=== PATIENT | female | born 1950 | race Caucasian/White ===

== ENCOUNTER 2016-11-10 12:59 | Emergency (ER) | payer BC, OTHER ==
--- NOTE | 2016-11-10 14:17 | DIAGNOSTIC IMAGING REPORT ---
PROCEDURE: CT HEAD WITHOUT CONTRAST INDICATION: TRAUMA/INJURY TECHNIQUE: Axial CT images were acquired through the head. Coronal and sagittal reformations were created. COMPARISON: None. FINDINGS: No intracranial hemorrhage or extraaxial fluid collections. Ventricles are normal in size, shape and position. There is no mass, mass effect or midline shift. The hill-white matter differentiation is normal. There is no edema. The calvarium is intact. The paranasal sinuses and mastoid air cells are normally aerated. There is some right frontal scalp edema. IMPRESSION: 1. No CT evidence of acute intracranial process. 2. Findings discussed with Herrera at 2:[address] scans at this facility use dose modulation, iterative reconstruction, and/or weight-based dosing when appropriate to reduce radiation dose to as low as reasonably achievable.
--- NOTE | 2016-11-10 16:24 | ED CLINICAL REPORT ---
Clinical Report - Physicians/Mid Levels [facility] [address] [place] [address] 11/10/2016 13:00 Patient: HARITHA VELEZ Time Seen: 1311; initial patient contact. Arrived- By ambulance. Historian- patient. HISTORY OF PRESENT ILLNESS Is no longer unconscious. She has recovered. Chief Complaint: SYNCOPE. This occurred today. It was abrupt in onset and has been intermittent. Event was witnessed. The patient collapsed. The patient had preceding symptoms of light-headedness. The episode lasted seconds. Currently she feels normal. (+ head injury with swelling to the forehead). Similar symptoms previously: (a few times). Recent medical care: Not recently seen/assessed. REVIEW OF SYSTEMS No chest pain, abdominal pain, vomiting, diarrhea or black stools. No bloody stools, fever, difficulty breathing or skin rash. All systems otherwise negative, except as recorded above. PAST HISTORY See nurses notes. Medications: Temazepam Oral, at bedtime as needed. Vitamins/Minerals Oral. Allergies: Codeine. Some plastics. Tape. SOCIAL HISTORY Never smoker. No alcohol use or drug use. No recent travel. Is a local resident. ADDITIONAL NOTES The nursing notes have been reviewed. PHYSICAL EXAM Vital Signs: 11/10/2016 13:13 BP: 142/75. HR: 71. RR: 14. O2 saturation: 100%. Temp: 98.0 F. Oxygen saturation normal. Appearance: Alert. No acute distress. Eyes: Pupils equal, round and reactive to light. No nystagmus. Extraocular movements normal. ENT: Normal ENT inspection. TM's normal. Moist mucous membranes. Pharynx normal. (a small hematoma noted to the for with overlying superficial abrasion. No laceration. No foreign body. Nonpulsatile.). Neck: Normal inspection. Neck supple. CVS: Normal heart rate and rhythm. Heart sounds normal. Pulses normal. Respiratory: No respiratory distress. Breath sounds normal. Abdomen: Soft and nontender. No organomegaly. Back: Normal inspection. Skin: Skin warm and dry. Normal skin color. No rash. Normal skin turgor. Extremities: Extremities exhibit normal ROM. No lower extremity edema. Neuro: Alert. Oriented X 3. Mood/affect normal. Cranial nerves normal (as tested). No cerebellar findings. No motor deficit. No sensory deficit. LABS, X-RAYS, AND EKG EKG: No acute process. No acute ischemia. Normal EKG. Normal sinus rhythm. Rate: 62. Normal P waves. Normal MAKSIM. Normal QRS complex. Normal axis. Normal ST and T waves, QT and QTc. The study has been interpreted contemporaneously. The study has been independently viewed by me. The EKG appears to be a good tracing. Interpretation time: 1311. CT Head: (PROCEDURE: CT HEAD WITHOUT CONTRAST INDICATION: TRAUMA/INJURY TECHNIQUE: Axial CT images were acquired through the head. Coronal and sagittal reformations were created. COMPARISON: None. FINDINGS: No intracranial hemorrhage or extraaxial fluid collections. Ventricles are normal in size, shape and position. There is no mass, mass effect or midline shift. The hill-white matter differentiation is normal. There is no edema. The calvarium is intact. The paranasal sinuses and mastoid air cells are normally aerated. There is some right frontal scalp edema. IMPRESSION: 1. No CT evidence of acute intracranial process.). The study was independently viewed by me and interpreted by the radiologist. The study was discussed with the radiologist (via PACS and the phone). Laboratory Tests: UA-Culture if indicated: (PAVAN: 11/10/2016 13:33) ( MsgRcvd 11/10/2016 14:39) Final results Test Result Flag Units (Reference) URINE COLOR YELLOW URINE APPEARANCE HAZY URINE GLUCOSE NEGATIVE (NEGATIVE) URINE BILIRUBIN NEGATIVE (NEGATIVE) URINE KETONE NEGATIVE (NEGATIVE) URINE SPECIFIC GRAVITY 1.010 (1.010-1.030) URINE PH 6.5 (5.0-8.0) URINE PROTEIN NEGATIVE (NEGATIVE) URINE UROBILINOGEN 0.2 EU/dL (0.2-1.0) URINE NITRITE NEGATIVE (NEGATIVE) URINE BLOOD NEGATIVE (NEGATIVE) URINE LEUK ESTERASE NEGATIVE (NEGATIVE) URINE RBC NONE SEEN rbc/hpf (0-1) URINE WBC NONE SEEN wbc/hpf (0-1) URINE EPITHELIAL CELLS NONE SEEN EPI/hpf (0-5) URINE BACTERIA NONE SEEN (NONE SEEN) URINE COMMENT CULT NOT INDICATED URINE CULTURES ARE SET-UP BASED ON THE FOLLOWING CRITERIA:POSITIVE NITRITEPOSITIVE LEUKOCYTE ESTERASEGREATER THAN 10 WHITE BLOOD CELLSMODERATE (2+) OR GREATER BACTERIA CBC w Diff: (PAVAN: 11/10/2016 13:22) ( [facility] 11/10/2016 13:36) Final results Test Result Flag Units (Reference) WHITE BLOOD COUNT 4.2 L K/uL (4.5-11.5) RED BLOOD COUNT 4.16 M/uL (4.00-5.20) HEMOGLOBIN 14.3 gm/dL (12.0-16.0) HEMATOCRIT 41.6 % (36.0-46.0) MEAN CELL VOLUME 100 fL (80-100) MEAN CORPUSCULAR HGB 34 pg (26-34) MEAN CORPUSCULAR HGB CONC 34 g/dL (31-37) RED CELL DISTRIBUTION WIDTH 13.0 % (11.6-14.8) PLATELET COUNT 178 K/uL (150-400) NEUTROPHIL % 52.6 % (50-75) LYMPH % 37.1 % (25-40) MONO % 7.8 % (3-14) EOSINOPHIL % 1.9 % (0-4) BASOPHIL % 0.6 % (0-2) PT with INR: (PAVAN: 11/10/2016 13:22) ( [facility] 11/10/2016 14:39) Final results Test Result Flag Units (Reference) INR 1.0 (0.8-1.2) Low Intensity Therapy: INR 1.5-2.0 PT range 18.5-23.1Mod.Intensity Therapy: INR 2.0-3.0 PT range 23.1-31.5High Intensity Therapy: INR 2.5-3.5 PT range 27.4-35.5High Intensity Therapy 2: INR 3.0-4.0 PT range 31.5-39.3 APTT 33 SECONDS (24-34) Troponin-I: (PAVAN: 11/10/2016 15:20) ( [facility] 11/10/2016 15:48) Final results Test Result Flag Units (Reference) TROPONIN I <0.05 L ng/mL (0.00-1.5) TROPONIN REFERENCE RANGE:<0.1 NEGATIVE0.1-1.5 INDETERMINANT>1.5 POSITIVE CMP: (PAVAN: 11/10/2016 13:22) ( MsgRcvd 11/10/2016 14:05) Final results Test Result Flag Units (Reference) GLUCOSE 98 mg/dL (70-110) BUN 16 mg/dL (7-18) CREATININE 0.8 mg/dL (0.6-1.3) Estimated GFR >60 mL/min Estimated GFR- >60 mL/min Note: Persistent reduction over 3 months in eGFR<60 mL/min/1.73 m2 defines CKD. Patients with eGFR values>=60 mL/min/1.73 m2 may also have CKD if evidence ofpersistent proteinuria. Additional information may be foundat www.kidney.org. SODIUM 142 mmol/L (136-145) POTASSIUM 4.1 mmol/L (3.5-5.1) CHLORIDE 106 mmol/L (98-107) CARBON DIOXIDE 28 mmol/L (21-32) CALCIUM 8.5 mg/dL (8.5-10.1) TOTAL PROTEIN 6.5 g/dL (6.4-8.2) ALBUMIN 3.5 g/dL (3.3-5.0) BILIRUBIN, TOTAL 0.5 mg/dL (0.0-1.0) ALKALINE PHOSPHATASE 61 U/L (46-116) AST (SGOT) 15 U/L (15-37) ALT (SGPT) 20 U/L (12-78) TROPONIN I <0.05 L ng/mL (0.00-1.5) TROPONIN REFERENCE RANGE:<0.1 NEGATIVE0.1-1.5 INDETERMINANT>1.5 POSITIVE . PROGRESS AND PROCEDURES Course of Care: the patient is a 66-year-old female presenting for evaluation of syncope and head injury. Patient without any tenderness. C-spine is cleared clinically. No other acute abnormalities noted. Patient is agreeable to the treatment plan. At this time, patient will be evaluated with the [place] syncope rule. We'll also be Evaluating for any cardiac event that could've precipitated her findings. patient's workup was markable for the findings above. Delta troponin ordered because of patient's time course. Patient's troponin is negative 2. No other signs of concerning etiologies for patient's syncopal event. Patient has been appropriate while here in the emergency department. Had a discussion with the patient in regards to her workup here in the emergency department including diagnosis, home care, follow-up, and return precautions. All questions have been answered. The patient expressed understanding of these instructions and was agreeable to them. Disposition: Discharged. Condition: good. CLINICAL IMPRESSION Syncope of unknown cause .12 lead EKG performed. (acute). 11/10/2016 16:28 BP: 138/77. HR: 81. RR: 14. O2 saturation: 100%. Temp: 98.3 F. Blood pressure normal. Oxygen saturation normal. Single contusion with soft tissue hematoma to the forehead. Probable minor closed head injury. Unknown whether a loss of consciousness occurred. INSTRUCTIONS Warnings: GENERAL WARNINGS: Return or contact your physician immediately if your condition worsens or changes unexpectedly, if not improving as expected, or if other problems arise. SPECIFICALLY, return if you develop chest pain, fluttering sensation in your chest, lightheadedness, fainting, numbness, weakness or extreme fatigue. Your Current Medications: CONTINUE TAKING THE FOLLOWING MEDICATIONS: Temazepam Oral : at bedtime, prn. Vitamins/Minerals Oral. OTC Medications: Acetaminophen (available over the counter): take according to label instructions. Motrin (available over the counter): take according to label instructions. Follow-up: Return to the emergency department as needed. Follow up with your doctor in three days. Reason for referral: recheck today's concerns. Summary of care provided to patient via paper. Screening today revealed the patient's blood pressure to be in the normal range. The patient should follow up with a primary care provider for blood pressure management. Understanding of the discharge instructions verbalized by patient and family. (Electronically signed by Narendra Silverman Dr. 11/10/2016 19:09)
--- NOTE | 2016-11-10 16:24 | ED ORDER SUMMARY ---
..... Patient: HARITHA VELEZ OrderSheet [facility] VisitID: [id number] [address] [place] [address] 66y, F Registration Date/Time: 11/10/2016 ORDER SHEET Weight: 95.2 kg (stated) Allergies: Codeine, Tape, Some plastics GENERAL ORDERS: Plant Director (Continuous) (poss syncope) (13:15 11/10/2016 Drea Magallon) (13:17 ASchmuck) CBC w Diff Urgent (13:16 11/10/2016 Drea Magallon) (Ack 13:18 Karlo) (13:28 ASchmuck) CMP Urgent (13:16 11/10/2016 Drea Magallon) (Ack 13:18 KIRSTENoerner) (13:28 ASchmuck) UA-Culture if indicated Urgent (13:16 11/10/2016 Drea Magallon) (Ack 13:18 Karlo) (13:35 ASchmuck) PT with INR Urgent (13:16 11/10/2016 Drea Magallon) (Ack 13:18 Karlo) (13:28 ASchmuck) PTT Urgent (13:16 11/10/2016 Drea Magallon) (Ack 13:18 KIRSTENoechitoner) (13:28 ASchmuck) Troponin-I Urgent (13:16 11/10/2016 Drea Magallon) (Ack 13:18 Karlo) (13:28 ASchmuck) Pulse oximeter (13:16 11/10/2016 Drea Magallon) (13:17 ASchmuck) EKG - ER Stat (13:16 11/10/2016 Drea Magallon) (13:16 PWeiler ER Tech1) (13:19 KHoerner) CT Head wo Cont Urgent (13:21 11/10/2016 Drea Magallon) (Ack 13:24 KIRSTENoejasper) (14:03 RFay) Irrigate Wounds (13:21 11/10/2016 Drea Magallon) (Cancelled: Duplicate Order13:28 ASchmuck) Dress Wounds (baci) (bandaide) (13:27 11/10/2016 Drea Magallon) (Ack 13:28 ASchmuck) (13:45 ASchmuck) Wound Irrigation (13:27 11/10/2016 Drea Magallon) (Ack 13:28 ASchmuck) (13:42 ASchmuck) Troponin-I (redraw 15:22) Urgent (14:32 11/10/2016 Drea Magallon) (Ack 14:33 KHoerner) (15:34 KHoerner) MEDICATION ORDERS: IV FLUIDS: IV Saline Lock (13:16 11/10/2016 Drea Magallon) (13:30 ASchmuck) ORDER SHEET NOTES: [Electronically signed by Abigail Rivera (18:44 11/10/2016)] [Electronically signed by Narendra Silverman Dr. (19:09 11/10/2016)] [Electronically locked/signed by Abigail Rivera (18:44 11/10/2016)]
--- NOTE | 2016-11-10 16:24 | ED NURSING NOTES ---
Clinical Report - Nurses [facility] [address] [place] [address] 11/10/2016 13:00 [id number] Triage time 13:Nov 10 2016. Acuity: LEVEL 2. Chief Complaint: SYNCOPE. 13:13 11/10/16. Alert. No acute distress. SEPSIS SCREEN: Sepsis Screen. Negative (no infection suspected/documented). WILFREDO COMA SCORE: Wilfredo Coma Scale: 15- eyes open spontaneously (4); best verbal response- oriented x 4 (5); best motor response- obeys commands (6). --13:13 Abigail Rivera 13:13 11/10/16. BP: 142/75. HR: 71. RR: 14. O2 saturation: 100%. Temp: 98.0 F. Pain level now 9/10. --13:13 Abigail Rivera. Weight: 95.2 kg stated. Height/Length: 67 inches Per Patient. BMI: 32.9. --13:11 Abigail Rivera. Medications Vitamins/Minerals Oral. --13:08 Abigail Rivera Temazepam Oral, at bedtime as needed. --13:09 Abigail Rivera. Medication/allergy information source: the patient. --13:13 Abigail Rivera. Allergies Codeine. --13:09 Abigail Rivera Tape. --13:09 Abigail Rivera Some plastics. --13:10 Abigail Rivera. History Arrived by EMS. Historian: EMS. Accompanied by family. Primary physician (Stuhlmiller. [place]). This started just prior to arrival. Onset was abrupt. She has had a headache and recent fall, trouble walking, dizziness and weakness. No impaired speech. Treatment CONVEYOR WORKER: See EMS report. EMS treatment CONVEYOR WORKER verbally communicated. Finger stick glucose performed (75 after eating). BP: 122/78. ( Pt was eating, started to feel flushed and then passed out. She hit her head. No neck/back pain.). PAST MEDICAL HX: Hypertension. No history of stroke or diabetes mellitus. No history of seizures. Immunizations: up-to-date. SOCIAL HX: Never smoker. No alcohol use or drug use. NUTRITIONAL RISK ASSESSMENT: The nutritional risk assessment revealed no deficiencies. FUNCTIONAL ASSESSMENT: Functional assessment: no impairments noted. LEARNING NEEDS ASSESSMENT: The learning needs assessment revealed no barriers. FALL RISK ASSESSMENT: Fall risk assessment completed. Risk factors identified include patient age greater than 65 years and history of fall. Fall interventions initiated. Patient placed on stretcher. Side rails up x1. Patient visible from nurses' station and identified as a fall risk by chart flagged. Call light in reach of patient. Instructed not to get up without assistance. SKIN INTEGRITY ASSESSMENT: Skin integrity risk assessment completed. No skin integrity risk identified. --13:13 Abigail Rivera Treatment CONVEYOR WORKER: Hard c-collar applied. --13:16 Abigail Rivera. PROBLEMS: Diverticulitis. Osteoarthritis of Knee. Pancreatitis. --13:11 Abigail Rivera. ADDITIONAL SURGERIES: Bowel resection. Cataract Surgery. Hernia Repair. --13:11 Abigail Rivera. Assessment The patient states feels the same. --13:13 Abigail Rivera. Interventions ID band on patient. --13:13 Abigail Rivera. PHYSICAL ASSESSMENT 13:16 11/10/16. To room via stretcher. Patient gowned. GENERAL / NEURO / PSYCH: Awake. Oriented X 4. Alert. Appears in no acute distress. [place] Coma Scale: 15- eyes open spontaneously (4); best verbal response- oriented x 4 (5); best motor response- obeys commands (6). Speech normal. Mood/affect normal. Moves all extremities equally. No motor deficit. No sensory deficit. HEENT: No facial asymmetry noted. Pupils equal, round and reactive to light. EOM intact. Pharynx within normal limits. RESPIRATORY: Respirations not labored. CVS: Capillary refill less than 2 seconds. SKIN: Skin is intact, warm and dry. --13:16 Abigail Rivera. NURSING PROGRESS NOTES 13:16 11/10/16. The plan of care for this patient has been created. undercover agent, pulse oximeter and NIBP monitor placed on patient; loader machine- Lead II and V5; monitor alarms on. Patient gowned. Head of bed elevated. Reassurance given. Two patient identifiers checked. Call light placed in reach. Side rails up x 2. Bed placed in lowest position. Brakes of bed on. Patient ready for evaluation- chart flagged and ED physician and PA notified. --13:16 Abigail Rivera 13:17 11/10/16. EKG time: (1311). EKG was ordered, performed by a tech and shown to the ED physician. --13:17 Abigail Rivera 13:24 11/10/2016 Site #1 started via IV in the left antecubital space with an 20g angiocath, with aseptic technique and good blood return; one attempt. Blood drawn: rainbow set. Labeled in the presence of the patient and sent to the lab. Saline lock flushed with 10 mL saline (Done by SAMAN Yeboah). --13:29 Abigail Rivera 13:30 11/10/16. ( Pt ambulated to bathroom, tolerated well.). --13:30 Abigail Rivera 13:39 11/10/16. Patient ID band checked for patient name and birthdate: patient confirmed. Instructions provided to collect clean catch urine and patient verbalized understanding. Clean catch urine collected with return of yellow-colored clear urine; sample sent to lab. Specimen labeled in the presence of the patient. --13:43 Abigail Rivera 13:43 11/10/16. Wound cleansed with Hibiclens. --13:43 Abigail Rivera 13:43 11/10/16. Applied clean dressing consisting of Band-Aid, following the application of antibiotic ointment (bacitracin). --13:43 Abigail Rivera 14:16 11/10/16. BP: 121/60. HR: 61. RR: 15. O2 saturation: 100%. --14:16 Abigail Rivera ( Pt up to restroom, denies being dizzy or lightheaded.). --15:03 Dayo Donohue R.N. 16:13 11/10/16. BP: 130/72. HR: 84. O2 saturation: 100%. --16:13 Abigail Rivera 16:52 11/10/2016 IV Saline Lock Drip IV Discontinued. Total amount infused: 0 mL. --16:52 Abigail Rivera 16:53 11/10/2016 Site #1 removed upon discharge. Catheter intact. Pressure dressing applied. --16:53 Abigail Rivera. DISPOSITION / DISCHARGE 16:11/10/16. Condition at departure: improved. The goals identified in the patient's plan of care were met. --16:28 Abigail Rivera 16:28 11/10/16. BP: 138/77. HR: 81. RR: 14. O2 saturation: 100% on room air. Temp: 98.3 F. Pain level now 0/10. --16:28 Abigail Rivera 16:53 11/10/16. Departure time: 16:Nov 10 2016. Condition at departure: improved. No learning barriers present. Discharge instructions provided and reviewed with the patient. Reviewed warnings (Patient verbalized awareness of warning s/sx listed in dc paperwork.). Reviewed medication(s) (Tylenol, ibuprofen). Treatments reviewed. Reviewed referral to a primary care physician for followup. Patient verbalized understanding. Written instructions provided in [place]. The patient was discharged by the physician. She was discharged home and accompanied by family. She left the Emergency Department ambulatory and via private vehicle. Family member driving. --16:53 Abigail Rivera. Locked/Released at 11/10/2016 18:44 by Abigail Rivera,
--- NOTE | 2016-11-10 16:24 | ED NURSING NOTES ---
Clinical Report - [facility] [address] [place] [place] [address] 11/10/2016 13:00 [id number] TRI[facility] Triage time 13:Nov 10 2016. Acuity: LEVEL 2. Chief Complaint: SYNCOPE. 13:13 11/10/16. Alert. No acute distress. SEPSIS SCREEN: Sepsis Screen. Negative (no infection suspected/documented). WILFREDO COMA SCORE: Wilfredo Coma Scale: 15- eyes open spontaneously (4); best verbal response- oriented x 4 (5); best motor response- obeys commands (6). --13:13 Abigail Rivera 13:13 11/10/16. BP: 142/75. HR: 71. RR: 14. O2 saturation: 100%. Temp: 98.0 F. Pain level now 9/10. --13:13 Abigail Rivera. Weight: 95.2 kg stated. Height/Length: 67 inches Per Patient. BMI: 32.9. --13:11 Abigail Rivera. Medications Vitamins/Minerals Oral. --13:08 Abigail Rivera Temazepam Oral, at bedtime as needed. --13:09 Abigail Rivera. Medication/allergy information source: the patient. --13:13 Abigail Rivera. Allergies Codeine. --13:09 Abigail Rivera Tape. --13:09 Abigail Rivera Some plastics. --13:10 Abigail Rivera. History Arrived by EMS. Historian: EMS. Accompanied by family. Primary physician ([place]. [place]). This started just prior to arrival. Onset was abrupt. She has had a headache and recent fall, trouble walking, dizziness and weakness. No impaired speech. Treatment DISTRIBUTED ENERGY SYSTEMS CONSULTANT: See EMS report. EMS treatment DISTRIBUTED ENERGY SYSTEMS CONSULTANT verbally communicated. Finger stick glucose performed (75 after eating). BP: 122/78. ( Pt was eating, started to feel flushed and then passed out. She hit her head. No neck/back pain.). PAST MEDICAL HX: Hypertension. No history of stroke or diabetes mellitus. No history of seizures. Immunizations: up-to-date. SOCIAL HX: Never smoker. No alcohol use or drug use. NUTRITIONAL RISK ASSESSMENT: The nutritional risk assessment revealed no deficiencies. FUNCTIONAL ASSESSMENT: Functional assessment: no impairments noted. LEARNING NEEDS ASSESSMENT: The learning needs assessment revealed no barriers. FALL RISK ASSESSMENT: Fall risk assessment completed. Risk factors identified include patient age greater than 65 years and history of fall. Fall interventions initiated. Patient placed on stretcher. Side rails up x1. Patient visible from nurses' station and identified as a fall risk by chart flagged. Call light in reach of patient. Instructed not to get up without assistance. SKIN INTEGRITY ASSESSMENT: Skin integrity risk assessment completed. No skin integrity risk identified. --13:13 Abigail Rivera Treatment DISTRIBUTED ENERGY SYSTEMS CONSULTANT: Hard c-collar applied. --13:16 Abigail Rivera. PROBLEMS: Diverticulitis. Osteoarthritis of Knee. Pancreatitis. --13:11 Abigail Rivera. ADDITIONAL SURGERIES: Bowel resection. Cataract Surgery. Hernia Repair. --13:11 Abigail Rivera. Assessment The patient states feels the same. --13:13 Abigail Rivera. Interventions ID band on patient. --13:13 Abigail Rivera. PHYSICAL ASSESSMENT 13:16 11/10/16. To room via stretcher. Patient gowned. GENERAL / NEURO / PSYCH: Awake. Oriented X 4. Alert. Appears in no acute distress. [place] Coma Scale: 15- eyes open spontaneously (4); best verbal response- oriented x 4 (5); best motor response- obeys commands (6). Speech normal. Mood/affect normal. Moves all extremities equally. No motor deficit. No sensory deficit. HEENT: No facial asymmetry noted. Pupils equal, round and reactive to light. EOM intact. Pharynx within normal limits. RESPIRATORY: Respirations not labored. CVS: Capillary refill less than 2 seconds. SKIN: Skin is intact, warm and dry. --13:16 Abigail Rivera. NURSING PROGRESS NOTES 13:16 11/10/16. The plan of care for this patient has been created. athletic monitor, pulse oximeter and NIBP monitor placed on patient; cardiac monitor technician- Lead II and V5; monitor alarms on. Patient gowned. Head of bed elevated. Reassurance given. Two patient identifiers checked. Call light placed in reach. Side rails up x 2. Bed placed in lowest position. Brakes of bed on. Patient ready for evaluation- chart flagged and ED physician and PA notified. --13:16 Abigail Rivera 13:17 11/10/16. EKG time: (1311). EKG was ordered, performed by a tech and shown to the ED physician. --13:17 Abigail Rivera 13:24 11/10/2016 Site #1 started via IV in the left antecubital space with an 20g angiocath, with aseptic technique and good blood return; one attempt. Blood drawn: rainbow set. Labeled in the presence of the patient and sent to the lab. Saline lock flushed with 10 mL saline (Done by SAMAN Yeboah). --13:29 Abigail Rivera 13:30 11/10/16. ( Pt ambulated to bathroom, tolerated well.). --13:30 Abigail Rivera 13:39 11/10/16. Patient ID band checked for patient name and birthdate: patient confirmed. Instructions provided to collect clean catch urine and patient verbalized understanding. Clean catch urine collected with return of yellow-colored clear urine; sample sent to lab. Specimen labeled in the presence of the patient. --13:43 Abigail Rivera 13:43 11/10/16. Wound cleansed with Hibiclens. --13:43 Abigail Rivera 13:43 11/10/16. Applied clean dressing consisting of Band-Aid, following the application of antibiotic ointment (bacitracin). --13:43 Abigail Rivera 14:16 11/10/16. BP: 121/60. HR: 61. RR: 15. O2 saturation: 100%. --14:16 Abigail Rivera ( Pt up to restroom, denies being dizzy or lightheaded.). --15:03 Dayo Donohue R.N. 16:13 11/10/16. BP: 130/72. HR: 84. O2 saturation: 100%. --16:13 Abigail Rivera 16:52 11/10/2016 IV Saline Lock Drip IV Discontinued. Total amount infused: 0 mL. --16:52 Abigail Rivera 16:53 11/10/2016 Site #1 removed upon discharge. Catheter intact. Pressure dressing applied. --16:53 Abigail Rivera. DISPOSITION / DISCHARGE 16:11/10/16. Condition at departure: improved. The goals identified in the patient's plan of care were met. --16:28 Abigail Rivera 16:28 11/10/16. BP: 138/77. HR: 81. RR: 14. O2 saturation: 100% on room air. Temp: 98.3 F. Pain level now 0/10. --16:28 Abigail Rivera 16:53 11/10/16. Departure time: 16:Nov 10 2016. Condition at departure: improved. No learning barriers present. Discharge instructions provided and reviewed with the patient. Reviewed warnings (Patient verbalized awareness of warning s/sx listed in dc paperwork.). Reviewed medication(s) (Tylenol, ibuprofen). Treatments reviewed. Reviewed referral to a primary care physician for followup. Patient verbalized understanding. Written instructions provided in Libyan. The patient was discharged by the physician. She was discharged home and accompanied by family. She left the Emergency Department ambulatory and via private vehicle. Family member driving. --16:53 Abigail Rivera. Locked/Released at 11/10/2016 18:44 by Abigail Rivera,
--- NOTE | 2016-11-10 16:24 | ED ORDER SUMMARY ---
..... Patient: HARITHA VELEZ OrderSheet [facility] VisitID: [id number] [address] [place] [address] 66y, F Registration Date/Time: 11/10/2016 ORDER SHEET Weight: 95.2 kg (stated) Allergies: Codeine, Tape, Some plastics GENERAL ORDERS: Rn Clinical (Continuous) (poss syncope) (13:15 11/10/2016 Drea Magallon) (13:17 ASchmuck) CBC w Diff Urgent (13:16 11/10/2016 Drea Magallon) (Ack 13:18 Karlo) (13:28 ASchmuck) CMP Urgent (13:16 11/10/2016 Drea Magallon) (Ack 13:18 KIRSTENoerner) (13:28 ASchmuck) UA-Culture if indicated Urgent (13:16 11/10/2016 Drea Magallon) (Ack 13:18 Karlo) (13:35 ASchmuck) PT with INR Urgent (13:16 11/10/2016 Drea Magallon) (Ack 13:18 Karlo) (13:28 ASchmuck) PTT Urgent (13:16 11/10/2016 Drea Magallon) (Ack 13:18 KIRSTENoechitoner) (13:28 ASchmuck) Troponin-I Urgent (13:16 11/10/2016 Drea Magallon) (Ack 13:18 Karlo) (13:28 ASchmuck) Pulse oximeter (13:16 11/10/2016 Drea Magallon) (13:17 ASchmuck) EKG - ER Stat (13:16 11/10/2016 Drea Magallon) (13:16 PWeiler ER Tech1) (13:19 KHoerner) CT Head wo Cont Urgent (13:21 11/10/2016 Drae Magallon) (Ack 13:24 KIRSTENoejasper) (14:03 RFay) Irrigate Wounds (13:21 11/10/2016 Drea Magallon) (Cancelled: Duplicate Order13:28 ASchmuck) Dress Wounds (baci) (bandaide) (13:27 11/10/2016 Drea Magallon) (Ack 13:28 ASchmuck) (13:45 ASchmuck) Wound Irrigation (13:27 11/10/2016 Drea Magallon) (Ack 13:28 ASchmuck) (13:42 ASchmuck) Troponin-I (redraw 15:22) Urgent (14:32 11/10/2016 Drea Magallon) (Ack 14:33 KHoerner) (15:34 KHoerner) MEDICATION ORDERS: IV FLUIDS: IV Saline Lock (13:16 11/10/2016 Drea Magallon) (13:30 ASchmuck) ORDER SHEET NOTES: [Electronically signed by Abigail Rivera (18:44 11/10/2016)] [Electronically signed by Narendra Silverman Dr. (19:09 11/10/2016)] [Electronically locked/signed by Abigail Rivera (18:44 11/10/2016)]
--- NOTE | 2016-11-10 19:09 | ED MAR SUMMARY ---
..... Medication Administration Record [facility] [address] [place] [id number] Patient: HARITHA VELEZ Visit ID: [id number] 66y, F Weight: 95.2 kg Height/Length: 67 in BMI: 32.9 ALLERGIES: Some plastics, Tape, Codeine
--- NOTE | 2016-11-10 19:09 | ED DISCHARGE INSTRUCTIONS ---
Patient: HARITHA VELEZ General Instructions Merged With [facility] VisitID: [id number] [address] [place] [address] 66y, F Registration Date/Time: 11/10/2016 Syncope of unknown cause .12 lead EKG performed. (acute). 11/10/2016 16:28 BP: 138/77. HR: 81. RR: 14. O2 saturation: 100%. Temp: 98.3 F. Blood pressure normal. Oxygen saturation normal. Single contusion with soft tissue hematoma to the forehead. Probable minor closed head injury. Unknown whether a loss of consciousness occurred. INSTRUCTIONS Warnings: GENERAL WARNINGS: Return or contact your physician immediately if your condition worsens or changes unexpectedly, if not improving as expected, or if other problems arise. SPECIFICALLY, return if you develop chest pain, fluttering sensation in your chest, lightheadedness, fainting, numbness, weakness or extreme fatigue. Your Current Medications: CONTINUE TAKING THE FOLLOWING MEDICATIONS: Temazepam Oral : at bedtime, prn. Vitamins/Minerals Oral. OTC Medications: Acetaminophen (available over the counter): take according to label instructions. Motrin (available over the counter): take according to label instructions. Follow-up: Return to the emergency department as needed. Follow up with your doctor in three days. Reason for referral: recheck today's concerns. Summary of care provided to patient via paper. Screening today revealed the patient's blood pressure to be in the normal range. The patient should follow up with a primary care provider for blood pressure management. Understanding of the discharge instructions verbalized by patient and family. ADDITIONAL INFORMATION Fainting:Uncertain Cause Fainting (syncope) is a temporary loss of consciousness ("passing out"). It occurs when blood flow to the brain is reduced. Near-fainting ("near-syncope") is very similar to fainting, but you do not fully "pass out". The common minor causes of fainting include: sudden fear, pain, nausea, emotional stress and overexertion. Suddenly standing up after sitting or lying for a long time can also cause fainting. The more serious causes for fainting are due to either a very slow or very fast or very slow heart beat ("arrhythmia"), other types of heart disease, dehydration, blood loss, seizure, stroke or ruptured blood vessel in the brain. Taking too much high blood pressure medicine can also cause low blood pressure and fainting. The exact cause of your episode is not certain. However, the tests today did not show any of the serious causes of fainting. Sometimes further testing is needed to find out if a serious problem exists. Therefore, it is important that you follow-up with your doctor as advised. Home Care: 1) Rest today. You may resume your normal activities when you are feeling back to normal. It is best to remain with someone who can check on you for the next 24 hours to watch for another episode of fainting. 2) If you become light-headed or dizzy, lie down immediately or sit with your head between your knees. 3) Because we do not know the exact cause of your near fainting spell, it is possible for another spell to occur without warning. Therefore, do not drive a car or operate dangerous equipment, do not take a bath alone (use a shower instead) and do not swim alone until your doctor says that you are no longer in danger of having another fainting spell. Follow Up with your doctor as advised. Get Prompt Medical Attention if any of the following occur: -- Another fainting spell occurs, which is not explained by the common causes listed above -- Chest, arm, neck, jaw, back or abdominal pain -- Shortness of breath -- Severe headache or seizure -- Blood in vomit, stools (black or red color) -- Unexpected vaginal bleeding -- Palpitations (very rapid or very slow or irregular heart beat) -- Signs of stroke: Weakness of an arm or leg or one side of the face Difficulty with speech or vision Extreme drowsiness, confusion, dizziness or fainting Contusion,Soft Tissue You have a CONTUSION, which is a bruise with swelling and some bleeding under the skin. There are no broken bones. This injury takes a few days to a few weeks to heal. Home Care: 1) Keep the injured part elevated to reduce pain and swelling. This is especially important during the first 48 hours. 2) Make an ice pack (ice cubes in a plastic bag, wrapped in a towel) and apply for 20 minutes every 1-2 hours the first day. Continue this 3-4 times a day until the pain and swelling goes away. 3) You may use acetaminophen (Tylenol) or ibuprofen (Motrin, Advil) to control pain, unless another pain medicine was prescribed. [ NOTE : If you have chronic liver or kidney disease or ever had a stomach ulcer or GI bleeding, talk with your doctor before using these medicines.] Follow Up with your doctor or this facility if you are not improving within the next THREE days. [NOTE: If X-rays were taken, they will be reviewed by a radiologist. You will be notified of any new findings that may affect your care.] Get Prompt Medical Attention if any of the following occur: -- Pain or swelling increases -- Injured arm or leg becomes cold, blue, numb or tingly -- Redness, warmth or drainage from the skin Head Injury, No Wake-Up (Adult) You have had a head injury. It does not appear serious at this time. Symptoms of a more serious problem (concussion, bruising, or bleeding in the brain) may appear later. Therefore, watch for the WARNING SIGNS listed below. Home Care: Your healthcare provider will tell you whether its okay to drive. If so, you can drive yourself home. For the next day or so, be careful when driving or using heavy machinery until you are sure you have no delayed symptoms. During the next 24 hours someone must stay with you to check for the signs below. It is not necessary to stay awake or be awakened during the night. If you have swelling of the face or scalp, apply an ice pack (ice cubes in a plastic bag, wrapped in a towel) for 20 minutes. Do this every 1-2 hours until the swelling starts to go down. Do not use aspirin or ibuprofen (Motrin, Advil) after a head injury.You may use acetaminophen (Tylenol)to control pain, unless another pain medicine was prescribed. [NOTE: If you have chronic liver or kidney disease or ever had a stomach ulcer or GI bleeding, talk with your doctor before using these medicines.] For the next 24 hours: Do not take alcohol, sedatives or medicines that make you sleepy. Avoid strenuous activities. No lifting or straining. If you have had any symptoms of a concussion today (nausea, vomiting, dizziness, confusion, headache, memory loss or if you were knocked out), do not return to sports or any activity that could result in another head injury until all symptoms are gone and you have been cleared by your doctor. A second head injury before fully recovering from the first one can lead to serious brain injury. Follow Up with your doctor if symptoms are not improving after 24 hours, or as directed. [NOTE: A radiologist will review any X-rays or CT scans that were taken. We will notify you of any new findings that may affect your care.] Get Prompt Medical Attention if any of the followingWARNING SIGNS occur: Repeated vomiting Severe or worsening headache or dizziness Unusual drowsiness, or unable to awaken as usual Confusion or change in behavior or speech, memory loss, blurred vision Convulsion (seizure) Increasing scalp or face swelling Redness, warmth or pus from the swollen area Fluid drainage or bleeding from the nose or ears You have been given the following additional information: Syncope, Unk Cause Contusion, Soft Tissue HEAD INJURY, No Wake-Up (Adult) (Electronically signed by Narendra Silverman Dr. 11/10/2016 19:09)
--- NOTE | 2016-11-10 19:09 | ED MAR SUMMARY ---
..... Medication Administration Record [facility] [address] [place], [place] [id number] Patient: HARITHA VELEZ Visit ID: [id number] 66y, F Weight: 95.2 kg Height/Length: 67 in BMI: 32.9 ALLERGIES: Some plastics, Tape, Codeine
--- NOTE | 2016-11-10 19:09 | ED MED RECONCILIATION SUMMARY ---
Patient: HARITHA VELEZ Medication Reconciliation Report [facility] VisitID: [id number] [address] [place] [address] 66y, F Registration Date/Time: 11/10/2016 Weight: 95.2 kg Height/Length: 67 in. BMI: 32.9 ALLERGIES: Codeine, Some plastics, Tape The patient's Home Medications are listed below: CONTINUE TAKING THE FOLLOWING MEDICATIONS: Temazepam Oral, at bedtime Vitamins/Minerals Oral The source(s) of the original Home Medication information: patient The following Medications were given to the patient in the Emergency Department: None. The following Medications were prescribed to the patient: Acetaminophen (available over the counter): take according to label instructions. -- Narendra Silverman Dr. Motrin (available over the counter): take according to label instructions. -- Narendra Silverman Dr.
--- NOTE | 2016-11-10 19:09 | ED MED RECONCILIATION SUMMARY ---
Patient: HARITHA VELEZ Medication Reconciliation Report [facility] VisitID: [id number] [address] [place] [address] 66y, F Registration Date/Time: 11/10/2016 Weight: 95.2 kg Height/Length: 67 in. BMI: 32.9 ALLERGIES: Codeine, Some plastics, Tape The patient's Home Medications are listed below: CONTINUE TAKING THE FOLLOWING MEDICATIONS: Temazepam Oral, at bedtime Vitamins/Minerals Oral The source(s) of the original Home Medication information: patient The following Medications were given to the patient in the Emergency Department: None. The following Medications were prescribed to the patient: Acetaminophen (available over the counter): take according to label instructions. -- Narendra Silverman Dr. Motrin (available over the counter): take according to label instructions. -- Narendra Silverman Dr.
== END 2016-11-10 16:53 | disposition home or self-care (01) ==
LOC: ED SRH 12:59
DX: S00.83XA Contusion of other part of head, initial encounter (principal); W19.XXXA Unspecified fall, initial encounter; R55 Syncope and collapse; Z88.5 Allergy status to narcotic agent; Z91.09 Other allergy status, other than to drugs and biological substances
CPT/HCPCS: 90004; 90074; 90098; 90100; 90616; 94001; 94060; 95059